=== PATIENT | female | born 1995 | race Caucasian/White ===

== ENCOUNTER → 2017-12-17 14:10 | Outpatient (CLI) | payer BC, SELFPAY ==
[2017-12-17 16:18] LABS: hCG Titer Quant., Serum < 1 mIU/mL (<9 non-preg)
[2017-12-17 16:52] LABS: Hemoglobin A1c 5.5 % (4.2-6.3)
[2017-12-17 17:12] LABS: Follicle Stimulating Hormone 4.9 mIU/mL; Free T3 3.4 pg/mL (2.18-3.98); Prolactin 10.8 ng/mL; T4 Free Direct 1.16 ng/dL (0.76-1.46); Thyroid Stim Hormone (TSH) 1.58 uIU/mL (0.358-3.74)
[2017-12-23 12:07] LABS: Testosterone, % Free 2.76 % (0.50-2.80); Testosterone, Free 1.93 ng/dL (0.10-0.85); Testosterone, Total 70 ng/dL (8-48)
[2017-12-24 12:41] LABS: DHEA Sulfate 317.5 ug/dL (110.0-431.7)
[2017-12-24 12:51] LABS: HPV Reflexed? NOT INDICATED
== END ==
PROVIDERS: Visit Provider Obstetrics & Gynecology
DX: N91.2 Amenorrhea, unspecified (principal); Z12.4 Encounter for screening for malignant neoplasm of cervix
CPT/HCPCS: 36415; 82627; 83001; 83002; 83036; 84146; 84402; 84403; 84439; 84443; 84481; 84702; 88175; 82626; G0145

== ENCOUNTER → 2018-02-02 16:05 | Outpatient (CLI) | payer BC, SELFPAY ==
[2016-10-16 11:06] VITALS: BMI 40.6
--- NOTE | 2018-02-02 02:57 | CER_PTH ---
PATIENT: KENRICK PHILLIPS [facility] U[facility][id number] AGE/SX: 29/F ROOM: RE02/02/[address]: Dr. Yovani Mariee MD : 1995 BED: DIS: SPEC #: [id number] RECD: 02/02/18 15:37 STATUS: JONO KIZZY #: [id number] JESSICA: 02/02/18 02:[address]: Yovani Mariee DEPT: SURGICAL PATHOLOGY RECD BY: Efrem Packer Tissues: A - Uterine cervix, NOS B - Uterine cervix, NOS C - Endocervical Procedures: Surgery Specimen Level IV HEADER OPERATION: Colposcopy PRE-OP DIAGNOSIS: LGSIL 12/17/17 TISSUE SUBMITTED: A - Cervical biopsy 7 o'clock, B - Cervical biopsy 12 o'clock, C - ECC MICROSCOPIC DIAGNOSIS A. Cervix, 7 o'clock, biopsy: Focal minimal changes suspicious for HPV cytopathic effects. See comment. B. Cervix, 12 o'clock, biopsy: Focal minimal changes suspicious for HPV cytopathic effects. Focal acute and chronic inflammation and squamous metaplasia. C. ECC: Fragments of benign endocervical epithelium and mucosa with mild acute and chronic inflammation, blood and mucous. Negative for dysplasia. SJ:rg 02/04/18 COMMENT A. Transitional zone mucosa is not seen in the specimen. MICROSCOPIC DESCRIPTION Slides are reviewed. GROSS DESCRIPTION A - Received in fixative is one container labeled with the patient's name and designated cervical biopsy 7 o'clock. The specimen consists of one irregular fragment of light palmer soft tissue that measures 0.2 x 0.2 x 0.1 cm. The specimen is totally submitted in one cassette. B - Received in fixative is one container labeled with the patient's name and designated cervical biopsy 12 o'clock. The specimen consists of one irregular fragment of light palmer soft tissue that measures 0.3 x 0.2 x 0.1 cm. The specimen is totally submitted in one cassette. C - Received in fixative is one container labeled with the patient's name and designated ECC. The specimen consists of multiple fragments of blood clot mixed with mucoid tissue that in aggregate measure 1.5 x 1 x 0.1 cm. The specimen is totally submitted in one cassette. / CHRISTIANO:renuka 02/03/18 TC:5 CPT: 43711 x3
--- OUTSIDE RECORDS SUMMARY | 2018-03-21 21:51 | XMS RPT_ITS ---
:1995 Author Organization [facility] Care Team Providers Name Role Phone Yovani Mariee Attending Unavailable Seals, Yovani Referring Unavailable Seals, Yovani Attending Unavailable PROBLEMS PROBLEMS DATE TYPE CONDITION / CODE ATTENDING STATUS SOURCE 12/17/2017 Unknown N91.2 - Yovani Mariee Active [facility] Amen[facility]hea, Community unspecified / Hospital N91.2(ICD-10) Repository 12/17/2017 Unknown Z12.4 - Encounter Yovani Mariee Active [facility] for screening for [facility] neoplasm of Repository cervix / Z12.4(ICD-10) PROCEDURES PROCEDURES No Procedure Records FoundRESULTS RESULTS CERVICAL Observed: 02/02/2018 Status: F Source: [place] 2:57 AM [facility] REPOSITORY Patient: MARLEN PHILLIPS : 1995 (22/F) Acct Num: [id number] Phys: Yovani Mariee MD Unit Num: [id number] Loc: [facility] Specimen: [id number] Received: 02/02/18 1532 Spec Type: CERV TISSUES 1 TISSUES: A. Uterine cervix, NOS B. Uterine cervix, NOS C. Endocervical COMMENT A. Transitional zone mucosa is not seen in the specimen. GROSS DESCRIPTION A - Received in fixative is one container labeled with the patient's name and designated cervical biopsy 7 o'clock. The specimen consists of one irregular fragment of light palmer soft tissue that measures 0.2 x 0.2 x 0.1 cm. The specimen is totally submitted in one cassette. B - Received in fixative is one container labeled with the patient's name and designated cervical biopsy 12 o'clock. The specimen consists of one irregular fragment of light palmer soft tissue that measures 0.3 x 0.2 x 0.1 cm. The specimen is totally submitted in one cassette. C - Received in fixative is one container labeled with the patient's name and designated ECC. The specimen consists of multiple fragments of blood clot mixed with mucoid tissue that in aggregate measure 1.5 x 1 x 0.1 cm. The specimen is totally submitted in one cassette. / SJ:renuka 02/03/18 TC:5 CPT: 49167 x3 HEADER OPERATION: Colposcopy PRE-OP DIAGNOSIS: LGSIL 12/17/17 TISSUE SUBMITTED: A - Cervical biopsy 7 o'clock, B - Cervical biopsy 12 o'clock , C - ECC MICROSCOPIC DESCRIPTION Slides are reviewed. MICROSCOPIC DIAGNOSIS A. Cervix, 7 o'clock, biopsy: Focal minimal changes suspicious for HPV cytopathic effects. See comment. B. Cervix, 12 o'clock, biopsy: Focal minimal changes suspicious for HPV cytopathic effects. Focal acute and chronic inflammation and squamous metaplasia. C. ECC: Fragments of benign endocervical epithelium and mucosa with mild acute and chronic inflammation, blood and mucous. Negative for dysplasia. CHRISTIANO:renuka 02/04/18 Signed Neno Stephen 02/04/18 <signature on file> Performed By: #### PCER #### [facility] [address] [place], [place], [address] HCG TITER QUANT., Collected: 12/17/2017 Status: F Source: [place] SERUM 2:14 PM [facility] REPOSITORY TYPE CODE TESTS RESULT OUT OF RANGE REFERENCE UNITS LAB L700.8000 <9 non-preg mIU/mL Normal HCG < 1 QUANT. Performed By: #### L700.8000 #### [facility] [address] [place], [address] HEMOGLOBIN A1C Collected: 12/17/2017 Status: F Source: [place] 2:14 PM [facility] REPOSITORY TYPE CODE TESTS RESULT OUT OF RANGE REFERENCE UNITS LAB L501.9985 4.2-6.3 % Normal HGB A1C 5.5 Performed By: #### L501.9985 #### [facility] [address] [place], [address] FREE T3 Collected: 12/17/2017 Status: F Source: [place] 2:14 PM [facility] REPOSITORY Order Comment: Has Patient had X-rays with Contrast this admission? N TYPE CODE TESTS RESULT OUT OF RANGE REFERENCE UNITS LAB L501.67061 2.18-3.98 pg/mL Normal FREE T3 3.4 Performed By: #### L501.08520, L501.9520, L506.0400, L3100.5125, L3100.5170, L3100.5420 #### [facility] [address] [place], [address] THYROID STIM HORMONE Collected: 12/17/2017 Status: F Source: [place] (TSH) 2:14 PM [facility] REPOSITORY Order Comment: Has Patient had X-rays with Contrast this admission? N TYPE CODE TESTS RESULT OUT OF RANGE REFERENCE UNITS LAB L501.9520 0.358-3.74 uIU/mL Normal TSH 1.58 Performed By: #### L501.08058, L501.9520, L506.0400, L3100.5125, L3100.5170, L3100.5420 #### [facility] [address] [place], [address] T4 FREE DIRECT Collected: 12/17/2017 Status: F Source: [place] 2:14 PM [facility] REPOSITORY Order Comment: Has Patient had X-rays with Contrast this admission? N TYPE CODE TESTS RESULT OUT OF RANGE REFERENCE UNITS LAB L506.0400 0.76-1.46 ng/dL Normal T4 FREE 1.16 DIRECT Performed By: #### L501.02745, L501.9520, L506.0400, L3100.5125, L3100.5170, L3100.5420 #### [facility] [address] [place], [place], [id number] FOLLICLE STIMULATING Collected: 12/17/2017 Status: F Source: [place] HORMONE 2:14 PM [facility] REPOSITORY Order Comment: Has Patient had X-rays with Contrast this admission? N TYPE CODE TESTS RESULT OUT OF RANGE REFERENCE UNITS LAB L3100.5125 mIU/mL Normal FSH 4.9 Result Comment: NORMAL REFERENCE RANGES FEMALE FOLLICULAR 2.3 - 12.6 mIU/mL MID-CYCLE PEAK 5.2 - 17.5 mIU/mL LUTEAL 1.7 - 12.9 mIU/mL POST-MENOPAUSAL ON MHT 5.9 - 72.8 mIU/mL NOT ON MHT 12.7 - 132.2 mlU/mL MALE 0.7 - 10.8 mIU/mL NEW TEST METHOD AND REFERENCE RANGES JULY 13, 2011 Performed By: #### L501.14925, L501.9520, L506.0400, L3100.5125, L3100.5170, L3100.5420 #### [facility] [address] [place], [place], [id number] LUTEINIZING HORMONE Collected: 12/17/2017 Status: F Source: [place] 2:14 PM [facility] REPOSITORY Order Comment: Has Patient had X-rays with Contrast this admission? N TYPE CODE TESTS RESULT OUT OF RANGE REFERENCE UNITS LAB L3100.5170 mIU/mL Normal LH 8.0 Result Comment: NORMAL REFERENCE RANGES FEMALE FOLLICULAR 1.9 - 26.2 mIU/mL MID-CYCLE PEAK 22.8 - 76.1 mIU/mL LUTEAL 0.6 - 16.6 mIU/mL POST-MENOPAUSAL ON MHT 1.1 - 52.4 mIU/mL NOT ON MHT 8.6 - 61.8 mIU/mL MALE 1.2 - 10.6 mIU/mL NEW TEST METHOD AND REFERENCE RANGES JULY 13, 2011 Performed By: #### L501.37444, L501.9520, L506.0400, L3100.5125, L3100.5170, L3100.5420 #### [facility] [address] [place], [address] PROLACTIN Collected: 12/17/2017 Status: F Source: [place] 2:14 PM [facility] REPOSITORY Order Comment: Has Patient had X-rays with Contrast this admission? N TYPE CODE TESTS RESULT OUT OF RANGE REFERENCE UNITS LAB L3100.5420 ng/mL Normal PROLACTIN 10.8 Result Comment: NORMAL REFERENCE RANGES FEMALE NON- 2.2 - 30.3 ng/mL 8.1 - 347.6 ng/mL POST-MENOPAUSAL 0.7 - 31.5 ng/mL MALE 2.5 - 17.4 ng/mL NEW TEST METHOD AND REFERENCE RANGES JULY 13, 2011 Performed By: #### L501.40508, L501.9520, L506.0400, L3100.5125, L3100.5170, L3100.5420 #### [facility] [address] [place], [address] TESTOSTERONE, TOTAL / Collected: 12/17/2017 Status: F Source: [place] FREE 2:14 PM [facility] REPOSITORY Order Comment: Has Patient had X-rays with Contrast this admission? N Has Patient had Radioactive Injection for X-ray?: N TYPE CODE TESTS RESULT OUT OF RANGE REFERENCE UNITS LAB L3100.5320 8-48 ng/dL High TESTOSTER,TOTAL 70 LAB L3100.5340 0.10-0.85 ng/dL High TESTOSTER,FREE 1.93 LAB L3100.5360 0.50-2.80 % Normal TESTOSTER %FREE 2.76 Performed By: #### L3100.5310, L3300.1500 #### [facility] (refer to report for specific site) refer to report for address and phone number DHEA SULFATE Collected: 12/17/2017 Status: F Source: [place] 2:14 PM [facility] REPOSITORY Order Comment: Has Patient had X-rays with Contrast this admission? N Has Patient had Radioactive Injection for X-ray?: N TYPE CODE TESTS RESULT OUT OF RANGE REFERENCE UNITS LAB L3300.1500 110.0-431.7 ug/dL Normal DHEA SULF 317.5 4020 Result Comment: Performed at: [facility] [id number] Nut Orchardist: Rowdy Adrian PhD, Phone: [phone] Performed at: - [facility] [id number] Nut Orchardist: Joaquin Tolliver MD, Phone: [phone] Performed By: #### L3100.5310, L3300.1500 #### [facility] (refer to report for specific site) refer to report for address and phone number PAP I-G W/RFX HRHPV Collected: 12/17/2017 Status: F Source: [place] 2:00 PM [facility] REPOSITORY Order Comment: CYTOLOGY INFORMATION: - CLINICAL INFORMATION: - DATE LMP/MENOPAUSE: 12/2016 LMP - COLLECTION VIAL: Thin Prep Vial - WELDING FOREMAN SOURCE: CERVICAL/ENDOCERVICAL - COLLECTION TECHNIQUE: BRUSH/SPATULA Specimen Comment: [id number] Specimen Comment: Source.............Cervix;Endocervix Specimen Comment: Dates / Results....LMP:12/2016 Specimen Comment: No. of containers..01 ThinPrep Vial TYPE CODE TESTS RESULT OUT OF REFERENCE UNITS RANGE LAB L7400.0800 . High DIAGN Comment Result Comment: EPITHELIAL CELL ABNORMALITY. LOW-GRADE SQUAMOUS INTRAEPITHELIAL LESION (LGSIL); MILD DYSPLASIA IS PRESENT. LAB L7400.0900 . Normal ADEQ Comment Result Comment: Satisfactory for evaluation. Endocervical and/or squamous metaplastic cells (endocervical component) are present. LAB L7400.1300 . High RECOMM Comment Result Comment: Suggest follow up as clinically appropriate. LAB L7400.1400 . Normal PERFORM Comment Result Comment: Flavio Moore Dry Pan Feeder (ASCP) LAB L7400.1700 . Normal SIGN Comment Result Comment: Raquel Sandhu MD, Pathologist LAB L7400.1720 . Normal Path prov. Comment ICD9 Result Comment: R87.612 LAB L7400.2575 . Normal TEST METHOD Comment Result Comment: This liquid based ThinPrep(R) pap test was screened with the use of an image guided system. LAB L7400.2600 . Normal . COMM LAB L7400.2700 . Normal PAPSMR Comment Result Comment: The Pap smear is a screening test designed to aid in the detection of premalignant and malignant conditions of the uterine cervix. It is not a diagnostic procedure and should not be used as the sole means of detecting cervical cancer. Both false-positive and false-negative reports do occur. LAB L7400.2800 . Normal HPV RFLX Comment Result Comment: The HPV DNA reflex criteria were not met with this specimen result therefore, no HPV testing was performed. Performed at: [facility] [id number] Nut Orchardist: Rdaha Pena MD, Phone: [phone] Performed By: #### L7400.0350 #### [facility] (refer to report for specific site) refer to report for address and phone number ALLERGIES ALLERGIES DATE TYPE / CODE NAME / CODE REACTION SEVERITY SOURCE 10/13/2016 Drug No Known Unknown [facility] Allergy/4160 Allergies/F00 [facility] [address](SNOMED [id number](RXNOR Repository CT) M) ENCOUNTERS ENCOUNTERS ADMIT/DISCHARGE ACCOUNT ADMITTING ENCOUNTER LOCATION SOURCE NUMBER CLASS 02/02/2018 [id number] Amb[facility] ing:[facility] Repository 12/17/2017 [id number] Ambulatory [place]i [facility] ing:WOBLAB Repository PAYERS PAYERS ENCOUNTER GUARANTOR PAYER SUBSCRIBER SOURCE 02/02/2018 MARLEN Primary MAIA Tyson [id number] Insurance:ANTHEMPolic DA[place]SONDOB: [place], [place] Number: [id number] [address]Bit: 330 [id number] Repository [phone] (HP) Date:[id number] [address] [place] [id number]: 02/02/2018 Secondary NOT GIVENUNK Mitali Insurance:SELF PAY [facility] Number: Effective Repository Date:2018-02-02 12/17/2017 Marlen Tyson [id number] STATE Insurance:ANTHEMPolic DAWSONDOB: [facility] [address] y [place]: [id number] Repository [phone]: 330) Date:[id number] [phone] (HP) [address] [place] [address]HP: 12/17/2017 Secondary NOT GIVENUNK Mitali Insurance:SELF PAY [facility] Number: Effective Repository Date:2017-12-17
== END ==
PROVIDERS: Referring Provider Obstetrics & Gynecology; Visit Provider Obstetrics & Gynecology
DX: R87.612 Low grade squamous intraepithelial lesion on cytologic smear of cervix (LGSIL) (principal)
CPT/HCPCS: 88305

== ENCOUNTER 2024-01-17 23:34 | Emergency (ER) | payer OTHER, SELFPAY ==
[2024-01-17 23:36] VITALS: BP 133/94; PULSE 99; RESP 18; TEMP 36.8; O2SAT 97
--- NOTE | 2024-01-17 23:50 | RAD_ITS ---
INDICATION: pain EXAMINATION/TECHNIQUE: X-RAY - LEFT XR Ankle Min 3 Views COMPARISON: None. FINDINGS: 3 views of the left ankle. Displaced spiral distal fibula metadiaphyseal fracture. Displaced angulated medial malleolus fracture at the base as well. Associated widening of the ankle mortise as well as medial and lateral soft tissue swelling. RAD/Ankle min 3 Views IMPRESSION: Left distal tib-fib fractures. Electronically Signed: Bay Littlejohn MD at 0:49 EST ,
[2024-01-18] MEDS: LORazepam 2 MG/ML Syringe 1 MG IV (00:06)
--- NOTE | 2024-01-18 00:06 | EX.ED.DYSGE1 ---
HPI History of Present Illness Chief Complaint: Lower Extremity Injury Informant: patient and EMS Narrative Narrative: Patient is a 28-year-old female with past medical history of PCOS. She states roughly 30 minutes to an hour prior to arrival she was stepping out of her truck when she slipped and injured her left ankle. She states that as she slipped she also twisted and she felt/heard a pop. She states she fell to the ground but denies striking her head or any loss of consciousness. She denies any history of bleeding disorder or blood thinner use. She states she could not get back up secondary to the pain in the left leg/ankle. She states she was able to scoot over to her phone and call 911 to come help her. She denies any numbness tingling or weakness but reports pain and swelling in the left ankle region and with concern for fracture was brought in for evaluation [facility] Medical History PCOS (polycystic ovarian syndrome) Home Medications ?Medication ?Instructions ?Recorded ?Last Taken ?Type ondansetron 4 mg disintegrating 4 mg PO TID PRN nausea and 01/18/24 Unknown Rx tablet vomiting #21 tabs oxycodone-acetaminophen 5 mg-325 1 tab PO Q6H PRN pain 5 days #20 01/18/24 Unknown Rx mg tablet (Percocet) tabs Allergy/AdvReac Type Severity Reaction Status Date / Time No Known Allergies Allergy Verified 01/17/24 23:36 Surgical History (Updated 01/17/24 @ 23:42 by Lilibeth Driver) Hx of dilation and curettage Hx of adenoidectomy Social History Smoking Status: Never smoker ROS ROS ED Constitutional Constitutional ED: Denies chills or fever(s) Eyes Eyes: Denies blurry vision, change in vision or diplopia ENT ENT ED: Denies sore throat Cardiovascular Cardiovascular: Reports other Details: Negative syncope ; Denies chest pain Respiratory/Chest Respiratory/Chest: Denies cough or dyspnea Gastrointestinal Gastrointestinal: Denies abdominal pain, diarrhea, nausea or vomiting Musculoskeletal Musculoskeletal: Reports other Details: Positive left ankle pain ; Denies back pain or neck pain Integumentary Denies Abrasions Neurologic Neurologic: Denies headache(s), paresthesias or weakness Hematologic/Lymphatic Hematologic/Lymphatic: Denies easy bleeding or easy bruising EXAM Physical Exam Const Vital Signs: 01/17/24 23:36 01/18/24 01:35 01/18/24 02:01 Temperature 98.2 F 98.0 F Temperature Source Oral Pulse Rate 99 104 H 107 H Respiratory Rate 18 18 18 Blood Pressure 133/94 H 150/80 H 123/82 H Blood Pressure Mean 107 103 95 Pulse Ox 97 96 98 Oxygen Delivery Method Room Air Room Air Positive well nourished, well developed and obese General Appearance ED: well developed Nutritional Appearance: obese HEENT HEENT Narrative: Normocephalic atraumatic Eyes PERRL and EOMs intact bilaterally General Eye ED: Negative for scleral icterus Neck supple Neck Narrative: No bony deformity or step-off of the cervical spine no midline tenderness to palpation Chest Wall palpation of chest normal Resp normal respiratory effort and clear to auscultation bilaterally Cardio regular rate and regular rhythm GI normal to inspection, nondistended, normoactive bowel sounds, non-tender, non-distended and no masses Auscultation: normoactive bowel sounds Palpation: soft Back/Spine Back/Spine Narrative: No bony deformity or step-off of the thoracic or lumbar spine no midline tenderness to palpation Extremity Extremity Narrative: Pelvis is stable there is no shortening or external rotation of either lower extremity Patient is able to move both arms without difficulty or pain Left lower extremity is neurovascularly intact. However there is soft tissue swelling with ecchymosis to the anterior aspect of the distal third of the left tibia with pain on palpation at the site. No obvious bony deformity or joint effusion. No obvious ligamentous laxity. There is diffuse pain on palpation of the left ankle/proximal tibia. Achilles tendon appears to be intact. Remainder of the exam is normal Neuro oriented x3, CN's II-XII intact bilaterally and no sensory deficits noted Sensorium / Orientation: alert Psych Mood & Affect: anxious and tearful Skin Skin Narrative: Soft tissue swelling of the left lower leg as documented above with faint ecchymosis. However no open wounds or signs of infection noted MDM MDM MDM Narrative Medical decision making narrative: Patient arrived to ER hypertensive but is in pain and that is to be expected and otherwise vitals are stable. She reported mechanical fall and therefore there is no need for cardiac or syncope workup. She did not strike her head or have loss of consciousness nor does she take blood thinner medications or have a history of bleeding disorder so have low concern for traumatic skull fracture versus traumatic subarachnoid or subdural hemorrhage and there is no need for head or cervical spine CT. with the patient having localized injury to the left lower leg there is concern for distal tibia and/or fibula fracture. As this is the only area of pain and injury by exam and x-ray was obtained. X-rays showed a bimalleolar fracture. The case was discussed with Dr. Payan/orthopedic surgeon. He reviewed the x-rays and does not feel there is need for a CT scan for potential surgical planning and there is no need for closed reduction at this time. Therefore the patient was splinted in Ortho-Glass to stabilize the fracture as document below. However as she has a closed fracture and is neurovascularly intact there is no need for admission and she is otherwise safe for discharge. The patient had a posterior tibial and stirrup Ortho-Glass splint placed to the left lower extremity. The splint fit the lower extremity well and provided appropriate stabilization of the fracture fragments. After application the patient's capillary refill remained less than 3 seconds. Patient tolerated procedure well without complication History & Record Review Discussion w/independent historian: Patient and Family Radiography Diagnostic Testing: Clinical Impression(s) from Imaging Studies Ankle X-Ray 01/17/24 23:50 IMPRESSION: Left distal tib-fib fractures. Electronically Signed: Bay Littlejohn MD at 0:49 EST , X-ray of the left ankle as interpreted by the emergency medicine physician reveals a distal tibia and fibula fracture without gross displacement or angulation Discharge Plan Triage Chief Complaint: Lower Extremity Injury ED Provider: Christofer Farias Dx/Rx/DC Orders Clinical Impression: Closed bimalleolar fracture of left ankle, PCOS (polycystic ovarian syndrome) Instructions: ED Ankle Fracture, ED Splint Care, Fiberglass Prescriptions: New oxycodone-acetaminophen [Percocet] 5-325 mg tablet 1 tab PO Q6H PRN (Reason: pain) 5 Days Qty: 20 0RF ondansetron 4 mg tablet,disintegrating 4 mg PO TID PRN (Reason: nausea and vomiting) Qty: 21 0RF Primary Care Provider: Tor Jones Referrals: Tor Jones MD [Primary Care Provider] - Nabeel Payan DO [Med Staff - Active Staff] - Activity Restrictions/Additional Instructions: Please follow-up with orthopedics for repeat evaluation to discuss if surgery versus casting is needed to help heal your fracture. Use crutches to help with weightbearing and try not to put any weight on your left foot/ankle. As pain meds were prescribed make sure you are taking a fiber supplement to prevent constipation. If you have any further concerns or worsening symptoms please return to the ER for repeat evaluation Print Language: [place] Islander Disposition Disposition: Home, Self Care
[2024-01-18] MEDS: Ondansetron 4 MG/2 ML Vial IV (01:07)
[2024-01-18] MEDS: Morphine 4 MG/ML Syringe IV (01:07)
[2024-01-18 01:35] VITALS: BP 150/80; PULSE 104; RESP 18; O2SAT 96
[2024-01-18 02:01] VITALS: BP 123/82; PULSE 107; RESP 18; TEMP 36.7; O2SAT 98
[2024-01-18] MEDS: oxyCODONE 5 MG Tablet 10 MG PO (02:07)
== END 2024-01-18 02:27 | disposition home or self-care (01) ==
PROVIDERS: Emergency Provider Emergency Medicine; PCP Family Medicine; Visit Provider Emergency Medicine
DX: S82.842A Displaced bimalleolar fracture of left lower leg, initial encounter for closed fracture (principal); E28.2 Polycystic ovarian syndrome; E66.9 Obesity, unspecified; V48.4XXA Person boarding or alighting a car injured in noncollision transport accident, initial encounter
CPT/HCPCS: 29515; 73610; 96374; 96375; 99285; A4216; J2405

== ENCOUNTER 2024-08-18 09:10 | Emergency (ER) | payer OTHER, SELFPAY ==
[2024-08-18 09:11] VITALS: BP 137/87; PULSE 92; RESP 14; TEMP 35.7; O2SAT 98; BMI 47.2
--- NOTE | 2024-08-18 09:25 | ED.VIS.FEGU ---
HPI HPI - Female History of Present Illness Chief Complaint: Vag Bleeding Informant: patient Narrative Narrative: Or 29-year-old female with history of PCOS states she has not had a menstrual cycle in the past 1.5 years and this 1 just started 4-5 days ago, for the first time in that amount of time. She states she has been bleeding heavily and having her typical midline pelvic cramping that is worse than usual, she is bleeding a pad every 30 minutes for the past 5 days. She states he is feeling fatigued but no lightheadedness no syncope. No nausea or vomiting or fevers or chills no urinary symptoms. She states her PIGSKIN TRIMMER was Dr. Hendricks but he retired and she cannot get into see a new one. [facility] Medical History PCOS (polycystic ovarian syndrome) Home Medications ?Medication ?Instructions ?Recorded ?Last Taken ?Type norethindrone acetate 5 mg tablet See Rx Instructions .Route 08/18/24 Unknown Rx .COMPLEX #33 tabs Allergy/AdvReac Type Severity Reaction Status Date / Time No Known Allergies Allergy Verified 08/18/24 09:10 Surgical History Hx of dilation and curettage Hx of adenoidectomy Social History Smoking Status: Never smoker ROS ROS ED Constitutional Constitutional ED: Reports fatigue; Denies chills or fever(s) Eyes Eyes: Denies change in vision or diplopia ENT ENT ED: Denies rhinorrhea or sore throat Cardiovascular Cardiovascular: Denies chest pain, lightheadedness, palpitations or syncope Respiratory/Chest Respiratory/Chest: Denies cough or dyspnea Gastrointestinal Gastrointestinal: Reports abdominal pain; Denies diarrhea, nausea or vomiting Genitourinary Genitourinary ED: Denies dysuria or hematuria Musculoskeletal Musculoskeletal: Denies back pain or neck pain Integumentary Denies abscess or rash Neurologic Neurologic: Denies headache(s), paresthesias or weakness Psychiatric Psychiatric: Denies anxiety or suicidal thoughts EXAM Physical Exam Const Vital Signs: 08/18/24 09:11 08/18/24 10:47 Temperature 96.3 F L Temperature Source Temporal Pulse Rate 92 Pulse Rate [Lying] 83 Pulse Rate [Sitting (for 1 minute prior to obtaining)] 81 Pulse Rate [Standing (for 1 minute prior to obtaining)] 84 Respiratory Rate 14 Blood Pressure 137/87 H Blood Pressure [Lying] 119/89 H Blood Pressure [Sitting (for 1 minute prior to obtaining)] 129/91 H Blood Pressure [Standing (for 1 minute prior to obtaining)] 123/94 H Blood Pressure Mean 103 Blood Pressure Mean [Lying] 99 Blood Pressure Mean [Sitting (for 1 minute prior to obtaining)] 103 Blood Pressure Mean [Standing (for 1 minute prior to obtaining)] 103 Pulse Ox 98 Oxygen Delivery Method Room Air Positive well nourished and well developed General Appearance ED: well developed and NAD HEENT Reports moist mucous membranes normocephalic and atraumatic Eyes PERRL and EOMs intact bilaterally Neck full ROM and supple Resp normal respiratory effort and clear to auscultation bilaterally Cardio regular rate, regular rhythm and no murmurs GI non-distended GI Narrative: Mild suprapubic tenderness, otherwise benign abdomen. Auscultation: normoactive bowel sounds Palpation: soft; Negative for guarding or rebound tenderness present Back/Spine no CVA tenderness General Back: other FROM Extremity normal to inspection General Extremety ED: Negative for edema, pulses abnormal or tenderness General Extremity: Negative for edema or pulses abnormal Neuro oriented x3, CN's II-XII intact bilaterally and no sensory deficits noted Sensorium / Orientation: awake and alert Motor Exam: strength 5/5 throughout Skin no rashes or lesions noted and no wounds MDM MDM MDM Narrative Medical decision making narrative: Orthostatics are negative, her hemoglobin is 12.3 normal, and is negative ruling out ectopic. The rest of her labs are unremarkable. She is comfortable here in the ED. I discussed with Dr. Poon, she agrees the patient does not need emergent D&C given her stability, and recommends trying an Aygestin taper first, that is a medication that we do not have to give the patient a dose of right now but I will prescribe it to her and a note to the pharmacy with urgency. She is comfortable with that plan and will follow-up. Lab Data Attestation: I reviewed the patient's lab results. Labs: Laboratory Results - last 24 hr 08/18/24 09:35 WBC 7.2 RBC 4.48 Hgb 12.3 Hct 38.2 MCV 85.3 MCH 27.5 MCHC 32.2 RDW Std Deviation 46.0 H RDW Coeff of Clark 14.7 H Plt Count 362 MPV 10.0 Immature Gran % (Auto) 0.300 Neut % (Auto) 72.7 H Lymph % (Auto) 19.5 [place] % (Auto) 5.0 Eos % (Auto) 1.8 Baso % (Auto) 0.7 Absolute Neuts (auto) 5.2 Absolute Lymphs (auto) 1.40 Nucleated RBC % 0 Sodium 140 Potassium 4.2 Chloride 104 Carbon Dioxide 24.1 Anion Gap 11 BUN 14 Creatinine 0.69 L Estim Creat Clear Calc 133.56 Est GFR (MDRD) Non-Af 121 BUN/Creatinine Ratio 19.7 Glucose 85 Calcium 9.3 Serum , Qual NEGATIVE Management Discussion w/another healthcare provider: Documentation Consultant (Gynecology Dr. Poon) Discharge Plan Triage Chief Complaint: Vag Bleeding ED Provider: John Oakley Dx/Rx/DC Orders Clinical Impression: DUB (dysfunctional uterine bleeding), PCOS (polycystic ovarian syndrome) Instructions: ED Dysfunctional Uterine Bleeding Prescriptions: New norethindrone acetate 5 mg tablet See Rx Instructions .ROUTE .COMPLEX Qty: 33 0RF Rx Instructions: 1 tab po qh x 4 on day 1; then 1 tab po TID x 3d; then 1 tab po BID x 10d Primary Care Provider: Tor Jones Referrals: Yeni Poon MD [Med Staff - Active Staff] - As soon as possible (call for appt) Print Language: Malawian Disposition Disposition: Home, Self Care
[2024-08-18 10:10] LABS: Absolute Neutrophil Count 5.2 X10^3/uL (2.0-7.7); Basophil# 0.05 X10^3/uL; Basophil% 0.7 % (0-1); Eosinophil# 0.13 X10^3/uL; Eosinophils% 1.8 % (0-5); Hematocrit 38.2 % (37-47); Hemoglobin 12.3 g/dL (12.0-15.0); Lymphocyte % 19.5 % (19-41); Mean Corp Hgb Conc 32.2 g/dL (32-36); Mean Corpuscular Hgb 27.5 pg (27.0-32.0); Mean Corpuscular Volume 85.3 fL (81-99); Monocyte# 0.36 X10^3/uL; NRBC Flagged by Analyzer 0 % (0-5); Neutrophil # 5.21 X10^3/uL (2.7-7.7); Neutrophil % 72.7 % (47-70); Platelet Count 362 K/mm3 (150-450); RBC Distribution Width CV 14.7 % (11.6-14.6); Red Blood Count 4.48 M/mm3 (4.2-5.4); White Blood Count 7.2 K/mm3 (4.4-11.0)
[2024-08-18 10:14] LABS: Internal QC Validated? YES +Cl - CLEAR BKGD; Pregnancy, Serum, hCG Quali. NEGATIVE Negative
[2024-08-18 10:34] LABS: Anion Gap 11 (5-15); BUN 14 mg/dL (4-19); BUN/Creat Ratio 19.7 RATIO (10-20); Calcium,Total 9.3 mg/dL (7.6-11.0); Carbon Dioxide 24.1 mmol/L (21.0-32.0); Chloride 104 mmol/L (98-108); Creatinine, Serum 0.69 mg/dL (0.70-1.20); EST Glomerular Filtration Rate 121 (>60); Estimated Creatinine Clearance 133.56 ml/min (50-250); Glucose 85 mg/dL (70-99); Potassium 4.2 mmol/L (3.3-5.1); Sodium Level 140 mmol/L (133-145)
[2024-08-18 10:47] VITALS: BP 119/89; BP 123/94; BP 129/91; PULSE 81; PULSE 83; PULSE 84
== END 2024-08-18 12:16 | disposition home or self-care (01) ==
PROVIDERS: Emergency Provider Emergency Medicine; PCP Family Medicine; Visit Provider Emergency Medicine
DX: N93.8 Other specified abnormal uterine and vaginal bleeding (principal); E28.2 Polycystic ovarian syndrome
CPT/HCPCS: 80048; 84703; 85025; 99285